=== PATIENT | male | born 1935 | race Caucasian/White ===

== ENCOUNTER 2017-11-12 09:23 | Day surgery (SDC) | payer MEDICARE, OTHER ==
[~2017-11-12] VITALS: Ht 180.3 cm; Wt 83.4 kg
[2017-11-12 09:57] VITALS: BP 157/81; PULSE 53; TEMP 97.5
[2017-11-12] MEDS ORDERED: HYTRIN 2MG CAPSU2 MG PO (10:01)
[2017-11-12] MEDS ORDERED: TENORMIN 2525 MG/TAB PO (10:02)
[2017-11-12] MEDS ORDERED: VICODIN 5/300 (10:03)
[2017-11-12] MEDS ORDERED: PRILOSEC 20MG20 MG PO (10:04)
[2017-11-12] MEDS ORDERED: FLOMAX 0.40.4 MG/CAP PO (10:04)
[2017-11-12] MEDS ORDERED: REFRESH TEARS 330 ML OP (10:05)
[2017-11-12] MEDS ORDERED: REMERON 15M15 MG/TA1 PO (10:05)
[2017-11-12] MEDS ORDERED: ASPIRIN E.C. 8181 MG PO (10:06)
[2017-11-12] MEDS ORDERED: CALCIUM 600-D 61 TAB PO (10:08)
[2017-11-12] MEDS ORDERED: LEADER CLE17 GM/Dose PO (10:09)
[2017-11-12] MEDS ORDERED: ZYLOPRIM 300MG300 MG PO (10:10)
[2017-11-12] MEDS ORDERED: LIPITOR 40MG TA40 MG PO (10:11)
[2017-11-12] MEDS ORDERED: VITAMINC1000TA (10:13)
[2017-11-12] MEDS ORDERED: BALANCE B-1001 TAB (10:13)
[2017-11-12] MEDS ORDERED: VITAMIN D31000 IU PO (10:14)
[2017-11-12] MEDS ORDERED: [UNRECOGNIZED DRUG - OTHER] PO (10:15)
[2017-11-12 11:30] VITALS: BP 142/94; PULSE 50
[2017-11-12 12:00] VITALS: BP 164/84; PULSE 59
[2017-11-12 12:30] VITALS: BP 150/85; PULSE 67
[2017-11-12 13:00] VITALS: BP 140/80; PULSE 67
== END 2017-11-12 13:40 | disposition home or self-care (01) ==
LOC: COL.CAR 09:23
DX: Z86.718 Personal history of other venous thrombosis and embolism (principal); Z86.711 Personal history of pulmonary embolism; M17.12 Unilateral primary osteoarthritis, left knee; Z87.891 Personal history of nicotine dependence; Z80.9 Family history of malignant neoplasm, unspecified; Z86.73 Personal history of transient ischemic attack (TIA), and cerebral infarction without residual deficits; R01.1 Cardiac murmur, unspecified; Z79.899 Other long term (current) drug therapy
CPT/HCPCS: J7120; Q9967